=== PATIENT | female | born 2000 | race Hispanic/Latino ===

== ENCOUNTER 2019-05-26 19:01 | Inpatient (IN) ==
[2019-05-26] MEDS ORDERED: PEPCID IV PRN (19:07)
[2019-05-26] MEDS ORDERED: REGLAN PO PRN (19:07)
[2019-05-26] MEDS ORDERED: BRETHINE SUBQ PRN (19:07)
[2019-05-26] MEDS ORDERED: KEFZOL 1 GM/D5W 1 GM/50 ML IVPB IV PRN (19:07)
[2019-05-26] MEDS ORDERED: STADOL IV PRN ×3 (19:07)
[2019-05-26] MEDS ORDERED: TYLENOL PO PRN (19:07)
[2019-05-26] MEDS ORDERED: AMBIEN PO PRN (19:07)
[2019-05-26] MEDS ORDERED: ZOFRAN IV PRN (19:07)
[2019-05-26] MEDS ORDERED: PEPCID PO PRN ×2 (19:07)
[2019-05-26] MEDS: LR 1,000 ML IV ONE (19:30)
[2019-05-26] MEDS ORDERED: CYTOTEC VAG ONE (20:00)
[2019-05-26 20:20] LABS: BASO# 0.02 X1000 (0.0-0.2); BASO% 0.2 % (0.0-0.8); EOS# 0.14 X1000 (0.0-0.7); EOS% 1.5 % (0.0-10.0); HEMATOCRIT 35.9 % (37.0-47.0); HEMOGLOBIN 12.1 g/dL (12.0-16.0); IMM GRAN# 0.03 X1000 (0.0-0.04); IMM GRAN% 0.3 % (0.0-0.5); LYMPH# 2.32 X1000 (1.2-3.4); LYMPH% 24.1 % (20.5-51.1); MCH 27.7 PG (27-31); MCHC 33.7 g/dL (33-37); MCV 82.2 FL (81-99); MONO# 0.53 X1000 (0.11-0.59); MONO% 5.5 % (1.7-9.3); MPV 10.7 FL (7.4-10.4); NEUT# 6.59 X1000 (1.4-6.5); NEUT% 68.4 % (42.2-75.2); PLT 297 X1000 (130-400); RBC 4.37 XMIL (4.2-5.4); RDW 12.7 % (11.5-14.5); WBC 9.63 X1000 (4.8-10.8)
[2019-05-26 20:32] LABS: URINE SOURCE VOIDED
[2019-05-26 20:34] LABS: UR AMPHETAMINES QUAL NONE DETECTED (NONE DETECT); UR BARBITUATES QUAL NONE DETECTED (NONE DETECT); UR BENZODIAZEPIN QUAL NONE DETECTED (NONE DETECT); UR CANNABINOIDS QUAL NONE DETECTED (NONE DETECT); UR COCAINE QUAL NONE DETECTED (NONE DETECT); UR METHADONE QUAL NONE DETECTED (NONE DETECT); UR METHAMPHETAMINE QUAL NONE DETECTED (NONE DETECT); UR OPIATES QUAL NONE DETECTED (NONE DETECT); UR OXYCODONE QUAL NONE DETECTED (NONE DETECT); UR PCP QUAL NONE DETECTED (NONE DETECT); UR PROPOXYPHENE QUAL NONE DETECTED (NONE DETECT); UR TCA QUAL NONE DETECTED (NONE DETECT)
[2019-05-26] MEDS ORDERED: CYTOTEC ONE (20:45)
[2019-05-26 20:53] LABS: BILIRUBIN URINE NEGATIVE (NEGATIVE); BLOOD URINE NEGATIVE (NEGATIVE); CLARITY CLEAR (CLEAR); COLOR YELLOW; GLUCOSE URINE NEGATIVE (NEGATIVE); KETONE URINE NEGATIVE (NEGATIVE); LEUKOCYTES URINE 1+ (NEGATIVE); NITRITE URINE NEGATIVE (NEGATIVE); PH URINE 6.5; PROTEIN URINE NEGATIVE (NEGATIVE); UROBILINOGEN URINE NORMAL
[2019-05-27] MEDS ORDERED: CYTOTEC VAG SCH
[2019-05-27] MEDS: CYTOTEC VAG SCH ×2 (01:29→05:57)
[2019-05-27] MEDS ORDERED: XYLOCAINE-MPF 1% INJ PRN ×2 (06:00→12:15)
[2019-05-27] MEDS ORDERED: MINERAL OIL TOP PRN (06:00)
[2019-05-27] MEDS ORDERED: PITOCIN 30 UNITS/NS 30 UNIT/500 ML IV.SOLN IV SCH ×2 (07:00→12:15)
[2019-05-27] MEDS: LR 1,000 ML IV ONE (07:17)
--- NOTE | 2019-05-27 10:18 | HISTORY AND PHYSICAL ---
HISTORY OF PRESENT ILLNESS: The patient is a 18-year-old, G1, P0, who presents to Labor and Delivery at 40 weeks and 5 days for scheduled induction of labor secondary to postdates. The patient reports good movement. Denies contractions, leakage of fluid, or vaginal bleeding. MEDICATIONS: vitamins. PAST MEDICAL HISTORY: None. PAST SURGICAL HISTORY: None. 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 Menarche at age 10. OBSTETRICAL HISTORY: G1, P0. FAMILY HISTORY: Noncontributory. SOCIAL HISTORY: Denies tobacco, alcohol, or drug use. ALLERGIES: No known drug allergies. PHYSICAL EXAMINATION: VITAL SIGNS: Temperature 97.3 degrees Fahrenheit. Pulse rate 76, respiration rate 18, blood pressure 116/56, and O2 sats 95% on room air. PHYSICAL EXAMINATION: GENERAL: No acute distress. Alert and oriented x3. CARDIOVASCULAR: Regular rate and rhythm. Positive S1, S2. RESPIRATORY: Clear to auscultation bilaterally. ABDOMEN: Gravid. Nontender to palpation. EXTREMITIES: No calf tenderness. Electronic monitoring category 1 tracing. [place] contractions q. 3 to 5 minutes. Sterile vaginal exam 4 to 5 cm dilated, 80% effaced, and -2 station. LABORATORY: WBCs 9.63, hemoglobin 12.1, hematocrit 35.9, and platelets 297,000. RPR nonreactive. GBS negative. ASSESSMENT: Mrs. Lanre Morrow is a 18-year-old, G1, P0, at 40 weeks and 5 days, who presents to Labor and Delivery for scheduled induction of labor secondary to postdates. PLAN: 1. Admit to Labor and Delivery. 2. Obtain routine labor labs. 3. Induction with Cytotec 25 mcg per vagina q.4 hours. 4. Augmentation with rupture of membranes and possible Pitocin. 5. Estimated weight 7-1/2 pounds. 6. Anticipate spontaneous vaginal delivery.
[2019-05-27] MEDS ORDERED: M-M-R II VACCINE SUBQ ONE (12:15)
[2019-05-27] MEDS ORDERED: CYTOTEC PO PRN (12:15)
[2019-05-27] MEDS ORDERED: BENADRYL IV PRN (12:15)
[2019-05-27] MEDS ORDERED: MINERAL OIL PO PRN (12:15)
[2019-05-27] MEDS ORDERED: PITOCIN IM PRN (12:15)
[2019-05-27] MEDS ORDERED: ATARAX PO PRN (12:15)
[2019-05-27] MEDS ORDERED: PERI MEDS (DERMOPLAST/NUPERCAINAL/TUCKS) MISC PRN (12:15)
[2019-05-27] MEDS ORDERED: PITOCIN 20 UNITS/NS 20 UNITS/1,000 ML IV.SOLN IV SCH (12:15)
[2019-05-27] MEDS ORDERED: BOOSTRIX VACCINE IM ONE (12:15)
[2019-05-27] MEDS ORDERED: MOTRIN PO PRN (12:15)
[2019-05-27] MEDS ORDERED: AMBIEN PO PRN (12:15)
[2019-05-27] MEDS ORDERED: BENADRYL PO PRN (12:15)
[2019-05-27] MEDS ORDERED: HYDROXYZINE IM PRN (12:15)
--- NOTE | 2019-05-27 19:16 | OPERATIVE NOTE ---
PROCEDURE DATE: 05/27/2019 PROCEDURE: Spontaneous vaginal delivery. PROVIDER: Herve Anderson DO DRUG ABUSE WORKER: Nalini Donaldson MS3 DESCRIPTION OF PROCEDURE: At 11:45 a.m. the patient delivered a viable 40-week 5-day female fetus weighing 6 pounds 14 ounces with scores of 9 and 10, at 1 and 5 minutes respectively. The vertex was delivered spontaneously over an intact perineum. No nuchal cord was identified. The anterior shoulder was delivered atraumatically by maternal expulsive efforts with the assistance of downward traction. The posterior shoulder delivered with manual expulsive efforts with upward traction. The remainder of the fetus delivered spontaneously. Upon delivery the cord was clamped and cut. The was then passed to the waiting computer systems auditor staff. Cord blood was obtained for analysis. The placenta delivered spontaneously intact with a three-vessel cord. To enhance uterine contractions, IV oxytocin was administered with fundal massage. The cervix, vagina and perineum were inspected for lacerations. A right-sided vaginal wall laceration was noted and repaired using 2-[address] needle in a running locked fashion. Good hemostasis was obtained. Lidocaine was given prior to repair at the laceration site for pain management.
[2019-05-27] MEDS: PERICOLACE PO SCH (20:12)
[2019-05-28 04:37] LABS: BASO# 0.02 X1000 (0.0-0.2); BASO% 0.2 % (0.0-0.8); EOS# 0.07 X1000 (0.0-0.7); EOS% 0.6 % (0.0-10.0); HEMATOCRIT 28.2 % (37.0-47.0); HEMOGLOBIN 9.3 g/dL (12.0-16.0); IMM GRAN# 0.02 X1000 (0.0-0.04); IMM GRAN% 0.2 % (0.0-0.5); LYMPH# 2.39 X1000 (1.2-3.4); LYMPH% 21.4 % (20.5-51.1); MCH 27.6 PG (27-31); MCV 83.7 FL (81-99); MONO# 0.58 X1000 (0.11-0.59); MONO% 5.2 % (1.7-9.3); MPV 9.9 FL (7.4-10.4); NEUT# 8.09 X1000 (1.4-6.5); NEUT% 72.4 % (42.2-75.2); PLT 239 X1000 (130-400); RBC 3.37 XMIL (4.2-5.4); RDW 12.9 % (11.5-14.5); WBC 11.17 X1000 (4.8-10.8)
--- NOTE | 2019-05-28 09:01 | OB/GYN PROGRESS NOTE ---
Progress Note OB - . Patient Problems: Current Active Problems Problem Status Onset Vaginal delivery Acute OB Progress Note: Vital Signs - 24 hr 05/27/19 20:00 05/27/19 23:17 05/28/19 04:00 Temperature 97.8 F 97.8 F 97.6 F Pulse Rate 81 75 63 Respiratory Rate 16 18 18 Blood Pressure 116/70 114/58 100/57 O2 Sat by Pulse Oximetry 99 96 98 05/28/19 08:30 Temperature 97.1 F L Pulse Rate 84 Respiratory Rate 16 Blood Pressure 128/83 O2 Sat by Pulse Oximetry 98 Laboratory Results - last 24 hr 05/28/19 04:14 WBC 11.17 H RBC 3.37 L Hgb 9.3 L D Hct 28.2 L D MCV 83.7 MCH 27.6 MCHC 33.0 RDW Std Deviation 12.9 Plt Count 239 MPV 9.9 Immature Gran % (Auto) 0.2 Neut % (Auto) 72.4 Lymph % (Auto) 21.4 [place] % (Auto) 5.2 Eos % (Auto) 0.6 Baso % (Auto) 0.2 Immature Gran # (Auto) 0.02 Neut # (Auto) 8.09 H Lymph # (Auto) 2.39 Brule # (Auto) 0.58 Eos # (Auto) 0.07 Baso # (Auto) 0.02 Pt doing well no complaints. minimal lochia bottlefeeding O: Vitals as above Gen: AAOx3 NAD CV: RRR no g/m/r Lungs: CTAB no w/r/r Abd: +BS soft NT/ND fundus firm at u-1 Ext: no c/c/e Labs as above A: PPD#1 s/p Anemia P: Routine pp care
[2019-05-28] MEDS: PERICOLACE PO SCH (20:58)
[2019-05-29 08:05] VITALS: BP 114/56
--- NOTE | 2019-06-01 15:51 | DISCHARGE SUMMARY ---
ADMISSION DATE: 05/26/2019 DISCHARGE DATE: 05/29/2019 ADMISSION DIAGNOSIS: The patient 18-year-old female G1, P0 at 40 and 5/7 weeks, scheduled for induction of labor secondary to postdates. FINAL DIAGNOSIS: 1. The patient 18-year-old female G1, P0 at 40 and 5/7 weeks, scheduled for induction of labor secondary to postdates. 2. Spontaneous vaginal delivery of a female , 6 pounds 14 ounces with Apgars of 9 and 10 at 11:45 on 05/27/2019. PROCEDURE: Spontaneous vaginal delivery. BRIEF HISTORY: Patient 18-year-old female, G1, P0, 40 and 5/7 weeks gestation, scheduled for induction of labor secondary to postdates. MEDICATIONS: vitamins. MEDICAL HISTORY: None. SURGICAL HISTORY: None. 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 The patient denies STDs. OBSTETRICAL HISTORY: G1, P0. FAMILY HISTORY: Noncontributory. SOCIAL HISTORY: Tobacco none. Alcohol none. Drug use none. ALLERGIES: No known drug allergies. PHYSICAL EXAMINATION: Vital Signs: Temperature 97.3 degrees, pulse of 76, respirations 18, blood pressure 116/56. General: No acute distress. Alert and oriented x3. CV: Regular rate and rhythm. Respiratory: Clear to auscultation bilaterally. Abdomen: Gravid, nontender. Extremities: No calf tenderness. Pelvic: Cervix was dilated 4 to 5 cm, 80% effaced, -2 station. Good monitoring demonstrated, category 1 heart tracing. ASSESSMENT/PLAN: 18-year-old female 40 weeks and 5 days gestation, G1, P0, who presents for scheduled induction of labor secondary to postdates. HOSPITAL COURSE: The patient had spontaneous vaginal delivery of a female 6 pounds 14 ounces with Apgars of 9 and 10 at 11:45 on 05/27/2019. course was unremarkable. Patient hemoglobin was 9.3 and 28.2 and she was started on iron sulfate. She had stable vital signs and was afebrile and on day #2 it is felt she could be discharged home. DISCHARGE INSTRUCTIONS: Patient to follow up with Dr. Anderson in 6 weeks. Instructed on pelvic rest for 6 weeks. DISCHARGE MEDICATIONS: Include [place] 5, Colace 100 mg, Motrin 800 mg and iron sulfate 325 mg. cc: Cyril Hebert III, MD MTDD
== END 2019-05-29 16:30 | disposition home or self-care (01) | DRG 806 ==
LOC: P.LD 19:01
PROVIDERS: ADMIT Obstetrics & Gynecology; ATTEND Obstetrics & Gynecology